=== PATIENT | female | born 1960 | race Caucasian/White ===

== ENCOUNTER 2020-12-13 05:44 | Day surgery (SDC) | payer MEDICARE, MEDICAID ==
[2020-12-04 15:11] LABS: LYMPHOCYTES % (AUTO) 34.7 % (21-51); MEAN CORPUSCULAR VOLUME 88.3 FL (78-98); MEAN PLATELET VOLUME 7.7 FL (7.4-10.4); MONOCYTES % (AUTO) 8.6 % (2-12); NEUTROPHILS % (AUTO) 55.3 % (42-75); PRE OP HEMATOCRIT 40.1 % (35.0-45.0); PRE OP HEMOGLOBIN 13.6 g/dL (12.0-16.0); PRE OP PLATELET COUNT 342 X10'3 (140-440); RED BLOOD COUNT 4.54 X10'6 (4.20-5.60); RED CELL DISTRIBUTION WIDTH 13.8 % (11.5-14.5)
[2020-12-04 15:12] LABS: BASOPHILS % (AUTO) 0.3 % (0-1); EOSINOPHILS # (AUTO) 0.1 X10'3 (0-0.9); EOSINOPHILS % (AUTO) 1.1 % (0-6); LYMPHOCYTES # (AUTO) 3.3 X10'3 (1.1-4.8); MONOCYTES # (AUTO) 0.8 X10'3 (0-0.9); NEUTROPHILS # (AUTO) 5.3 X10'3 (1.8-7.7)
[2020-12-04 15:24] LABS: ALBUMIN 3.5 G/DL (3.4-5.0); ALBUMIN/GLOBULIN RATIO 0.8 (1.1-1.5); ALKALINE PHOSPHATASE 206 IU/L (46-116); BLOOD UREA NITROGEN 18 MG/DL (7-18); BUN/CREATININE RATIO 19.6 (6.6-38.0); CALCIUM 8.7 MG/DL (8.5-10.1); CHLORIDE 109 MMOL/L (99-107); CREATININE 0.92 MG/DL (0.40-0.90); PRE OP ALT 32 U/L (30-65); PRE OP ANION GAP 9 (8-16); PRE OP AST 19 U/L (10-37); PRE OP BILIRUB, TOTAL 0.1 MG/DL (0.0-1.0); PRE OP GLUCOSE 131 MG/DL (70-104); PRE OP SODIUM 146 MMOL/L (135-145); TOTAL CARBON DIOXIDE 27.8 MMOL/L (24-32); TOTAL PROTEIN 8.1 G/DL (6.4-8.2); eGFR 62 ML/MIN
[~2020-12-13] VITALS: Ht 160 cm; Wt 108.0 kg
[~2020-12-13 05:44] MED LIST: ATOR10TA70 PO; CALC600T22 PO; CETI10TA14 PO; CHOL10006 PO; METF-1203 PO; PHEN32.46 PO; PHENOBARBITAL PO; SOY155CA PO; cefazolin/dext.iso 2gm/50ml 50 ML IV ONE; famotidine 20mg tablet PO ONE; fish oil; ringers solution, lacted 1,000 ML IV SCH
[2020-12-13 06:00] VITALS: BP 156/85
[2020-12-13] MEDS ORDERED: BUPIVAcaine/PF 2.5mg/ml (0.25%) 10ml vial ONE (06:44)
[2020-12-13] MEDS ORDERED: morphine 2 MG/ML inj. syringe IV PRN (07:20)
[2020-12-13] MEDS ORDERED: ondansetron/PF 4mg/2ml inj IV PRN (07:20)
[2020-12-13] MEDS ORDERED: labetalol 20mg/4ml (5mg/ml) syringe IV PRN (07:20)
[2020-12-13] MEDS ORDERED: fentaNYL/PF 50MCG/1 ML 2ML syringe IV PRN ×2 (07:20)
[2020-12-13] MEDS ORDERED: morphine 4 MG/ML inj SYRINge IV PRN (07:20)
[2020-12-13] MEDS ORDERED: ringers solution, lacted 1,000 ML IV SCH (07:20)
[2020-12-13] MEDS ORDERED: hydrALAZINE 20mg/ml inj. IV PRN (07:20)
[2020-12-13] MEDS ORDERED: desflurane 240ml liquid inh. IH ONE ×2 (07:27→09:06)
[2020-12-13 08:12] VITALS: BP 154/91
--- NOTE | 2020-12-13 08:12 | NUR ---
Received from OR via TOI IN STABLE CONDITION , accompanied by Anesthesiologist and SOCIAL STUDIES TEACHER report given by SOCIAL STUDIES TEACHER AND Anesthesiolgist. Addendum: 12/13/20 at 0825 by Nohemy Anguiano RN Amended: Links added.
[2020-12-13 08:20] VITALS: BP 140/82
[2020-12-13 08:30] VITALS: BP 150/84
--- NOTE | 2020-12-13 09:02 | NUR ---
PATIENT DISCHARGED FROM PACU IN STABLE CONDITION AFTER WRITTEN AND VERBAL DISCHARGE INSTRUCTIONS GIVEN. PATIENT GAVE VERBAL UNDERSTANDING OF INSTRUCTIONS GIVEN. PATIENT LEFT FACILITY VIA WHEELCHAIR WITH RN. Addendum: 12/13/20 at 0911 by Nohemy Anguiano RN Amended: Links added.
[2020-12-13] MEDS ORDERED: MIDAZolam 1mg/ml 10ml vial ONE (09:06)
[2020-12-13] MEDS ORDERED: fentaNYL/PF 50MCG/1 ML 2ML syringe ONE (09:06)
[2020-12-13] MEDS ORDERED: LIDOcaine 1%/PF 5ML 10 MG/ML VIAL ONE (09:06)
[2020-12-13] MEDS ORDERED: propofol 10mg/ml 20ml vial IV ONE (09:06)
== END 2020-12-13 09:02 | disposition home or self-care (01) ==
LOC: PAS 05:44
PROVIDERS: ATTEND Orthopaedic Surgery Hand Surgery
DX: M72.0 Palmar fascial fibromatosis [Dupuytren] (principal); G51.0 Bell's palsy; E11.9 Type 2 diabetes mellitus without complications; E66.9 Obesity, unspecified; Z68.41 Body mass index [BMI] 40.0-44.9, adult; M19.012 Primary osteoarthritis, left shoulder; Z20.822 Contact with and (suspected) exposure to COVID-19; Z90.49 Acquired absence of other specified parts of digestive tract; Z96.652 Presence of left artificial knee joint; Z98.890 Other specified postprocedural states; Z79.84 Long term (current) use of oral hypoglycemic drugs; Z79.899 Other long term (current) drug therapy; Z79.2 Long term (current) use of antibiotics
CPT/HCPCS: 26121; 36415; 80053; 82948; 85025; 93005; A6222; J2250; J2704; J3010; J3490; J7120; U0003; U0005; Z7506; Z7512; A4215; A4618; A6449; A7000

== ENCOUNTER 2024-05-31 14:39 | Inpatient (IN) | payer MEDICARE, MEDICAID ==
[~2024-05-31] VITALS: Ht 160 cm; Wt 103.1 kg
[~2024-05-31 14:39] MED LIST changes: -cefazolin/dext.iso 2gm/50ml 50 ML IV ONE; -famotidine 20mg tablet PO ONE; -ringers solution, lacted 1,000 ML IV SCH
[2024-05-31 15:00] LABS: BASOPHILS % (AUTO) 0.4 % (0-1); EOSINOPHILS # (AUTO) 0.2 X10'3 (0-0.9); HEMATOCRIT 43.5 % (35.0-45.0); HEMOGLOBIN 14.2 g/dl (12.0-16.0); LYMPHOCYTES % (AUTO) 21.6 % (21-51); MEAN CORPUSCULAR HEMOGLOBIN 29.7 PG (27.0-31.0); MEAN CORPUSCULAR HGB CONC 32.7 g/dL (33.0-36.5); MEAN CORPUSCULAR VOLUME 90.6 FL (78-98); MEAN PLATELET VOLUME 7.9 FL (7.4-10.4); MONOCYTES # (AUTO) 0.8 X10'3 (0-0.9); MONOCYTES % (AUTO) 8.2 % (2-12); NEUTROPHILS # (AUTO) 6.2 X10'3 (1.8-7.7); NEUTROPHILS % (AUTO) 67.8 % (42-75); PLATELET COUNT 317 X10'3 (140-440); RED BLOOD COUNT 4.81 X10'6 (4.20-5.60); RED CELL DISTRIBUTION WIDTH 14.8 % (11.5-14.5); WHITE BLOOD COUNT 9.2 X10'3 (4.5-11.0)
[2024-05-31 15:21] LABS: ALANINE AMINOTRANSFERASE 57 U/L (12-78); ALBUMIN 3.5 G/DL (3.4-5.0); ALBUMIN/GLOBULIN RATIO 0.8 (1.1-1.5); ALKALINE PHOSPHATASE 185 IU/L (46-116); BILIRUBIN,TOTAL 0.4 MG/DL (0.1-1.0); BLOOD UREA NITROGEN 22 MG/DL (7-18); CHLORIDE 103 MMOL/L (99-107); POTASSIUM 3.7 MMOL/L (3.5-5.1); eGFR 42 ML/MIN
[2024-05-31 15:50] LABS: ANION GAP 7 (8-16); ASPARTATE AMINO TRANSFERASE 30 U/L (10-37); BUN/CREATININE RATIO 17.3 (10.0-20.0); CALCIUM 9.2 MG/DL (8.5-10.1); CREATININE 1.27 MG/DL (0.40-0.90); GLUCOSE 116 MG/DL (70-104); SODIUM 143 MMOL/L (135-145); TOTAL CARBON DIOXIDE 33.5 MMOL/L (24-32); TOTAL PROTEIN 7.8 G/DL (6.4-8.2); eCRCL 37 ML/MIN
[2024-05-31 15:58] LABS: PRO BRAIN NATRIURETIC PEPTIDE 3602 PG/ML (0-125)
[2024-05-31] MEDS ORDERED: OMEP20CA16 PO (18:35)
[2024-05-31] MEDS ORDERED: SPIR25TA5 PO (18:35)
[2024-05-31] MEDS ORDERED: AMI200T PO (18:35)
[2024-05-31] MEDS ORDERED: FURO40TA4 PO (18:35)
[2024-05-31] MEDS ORDERED: APIX5TAB3 PO (18:35)
[2024-05-31] MEDS ORDERED: EMPA10TA PO (18:35)
[2024-05-31] MEDS ORDERED: LOSA25TA41 PO (18:35)
[2024-05-31] MEDS: diltiazem 5mg/ml 5ml inj. IV ONE (18:45)
[2024-05-31] MEDS: diltiazem-NS 100mg/100ml 100 ML IV SCH (19:04)
[2024-05-31] MEDS ORDERED: potassium Cl 40MEQ/1/2NS 520ml 520 ML IV PRN (19:30)
[2024-05-31] MEDS ORDERED: magnesium Cl slow-release 64mg tablet PO PRN (19:30)
[2024-05-31] MEDS ORDERED: mag hydrox/Alum hydrox/simeth 30ml oral suspension PO PRN (19:30)
[2024-05-31] MEDS ORDERED: potassium Cl 20 mEq SR tablet PO PRN ×2 (19:30)
[2024-05-31] MEDS ORDERED: magnesium sulf-water 2g/50mL 50 ML IV PRN (19:30)
[2024-05-31] MEDS ORDERED: morphine 2 MG/ML inj. syringe IV PRN ×2 (19:30)
[2024-05-31] MEDS ORDERED: magnesium hydroxide 30ml (MOM) UD suspension PO PRN (19:30)
[2024-05-31] MEDS ORDERED: magnesium sulf-water 4G/100mL 100 ML IV PRN (19:30)
[2024-05-31] MEDS ORDERED: ondansetron/PF 4mg/2ml inj IV PRN (19:30)
[2024-05-31] MEDS ORDERED: acetaminophen 325mg tablet PO PRN (19:30)
[2024-05-31] MEDS: K and/or MAG REPLACEMENT MC SCH (20:00)
[2024-05-31] MEDS: docusate sod 100mg capsule PO SCH (20:00)
[2024-05-31] MEDS: metoprolol tartrate 1mg/ml inj IV SCH (20:31)
[2024-05-31] MEDS: furosemide 40mg/4ml inj IV SCH (20:32)
[2024-05-31] MEDS ORDERED: glucagon, human recombinant 1mg kit SUBCUT PRN (21:50)
[2024-05-31] MEDS ORDERED: dextrose 50%-water 50ml dispensing syringe IV PRN ×2 (21:50)
[2024-05-31] MEDS ORDERED: DEXTROSE 15 GM of carb/4 tabs (each vial/BOTTLE has 4 tablets) PO PRN ×2 (21:50)
[2024-05-31] MEDS: atorvastatin 10mg tablet PO SCH (22:02)
[2024-05-31 22:12] LABS: HEMOGLOBIN A1C 6.5 % (4.5-6.2)
[2024-05-31 23:15] VITALS: RESP 13; O2SAT 94
[2024-05-31 23:30] VITALS: BP 128/84; PULSE 100; RESP 13; TEMP 97.5; O2SAT 94
[2024-06-01] VITALS (19 sets, daily range): BP systolic 87–126; BP diastolic 51–93; PULSE 83–131; RESP 11–25; TEMP 97.5–98.4; O2SAT 92–98
[2024-06-01] MEDS: diltiazem-NS 100mg/100ml 100 ML IV SCH ×2 (03:44→11:09)
[2024-06-01] MEDS: INSULIN LISPRO 100 UNIT/ML INSULN.PEN MULTI-DOSE SQ SCH ×2 (07:00→09:00)
[2024-06-01 07:29] LABS: BASOPHILS % (AUTO) 0.3 % (0-1); EOSINOPHILS # (AUTO) 0.2 X10'3 (0-0.9); EOSINOPHILS % (AUTO) 1.8 % (0-6); HEMATOCRIT 40.4 % (35.0-45.0); HEMOGLOBIN 13.4 g/dl (12.0-16.0); LYMPHOCYTES # (AUTO) 2.2 X10'3 (1.1-4.8); LYMPHOCYTES % (AUTO) 23.8 % (21-51); MEAN CORPUSCULAR HEMOGLOBIN 29.7 PG (27.0-31.0); MEAN CORPUSCULAR HGB CONC 33.3 g/dL (33.0-36.5); MEAN CORPUSCULAR VOLUME 89.2 FL (78-98); MEAN PLATELET VOLUME 8.1 FL (7.4-10.4); MONOCYTES % (AUTO) 10.6 % (2-12); NEUTROPHILS # (AUTO) 5.8 X10'3 (1.8-7.7); NEUTROPHILS % (AUTO) 63.5 % (42-75); PLATELET COUNT 306 X10'3 (140-440); RED BLOOD COUNT 4.53 X10'6 (4.20-5.60); RED CELL DISTRIBUTION WIDTH 14.2 % (11.5-14.5); WHITE BLOOD COUNT 9.2 X10'3 (4.5-11.0)
[2024-06-01 07:53] LABS: ALANINE AMINOTRANSFERASE 46 U/L (12-78); ALBUMIN/GLOBULIN RATIO 0.8 (1.1-1.5); ALKALINE PHOSPHATASE 162 IU/L (46-116); ANION GAP 8 (8-16); ASPARTATE AMINO TRANSFERASE 24 U/L (10-37); BILIRUBIN,TOTAL 0.4 MG/DL (0.1-1.0); BLOOD UREA NITROGEN 15 MG/DL (7-18); CALCIUM 8.7 MG/DL (8.5-10.1); CHLORIDE 103 MMOL/L (99-107); GLUCOSE 102 MG/DL (70-104); MAGNESIUM 1.9 MG/DL (1.5-2.4); POTASSIUM 3.6 MMOL/L (3.5-5.1); SODIUM 142 MMOL/L (135-145); TOTAL PROTEIN 6.8 G/DL (6.4-8.2); eCRCL 47 ML/MIN; eGFR 56 ML/MIN
[2024-06-01] MEDS: losartan 25mg tablet PO SCH (07:57)
[2024-06-01] MEDS: EMPAGLIFLOZIN 10 MG TABLET PO SCH (07:57)
[2024-06-01] MEDS: apixaban 5mg tablet PO SCH (07:57)
[2024-06-01] MEDS: pantoprazole 40mg Tablet.DR PO SCH (07:58)
[2024-06-01] MEDS: spironolactone 25 MG tablet PO SCH (07:58)
[2024-06-01] MEDS: amiodarone 200mg tablet PO SCH (07:58)
[2024-06-01] MEDS: phenoBARBITAL 30mg tablet PO SCH (09:29)
[2024-06-01] MEDS: amiodarone 150mg/dext, iso-os 100 ML IV ONE (14:53)
[2024-06-01] MEDS: metoprolol tartrate 50mg tablet PO SCH (14:53)
[2024-06-01] MEDS: amiodarone/D5 360MG/200ML BAG 200 ML IV SCH (15:11)
[2024-06-01] MEDS: insulin glargine (Lantus) pen - multi-dose SQ SCH (20:59)
[2024-06-02] VITALS (8 sets, daily range): BP systolic 92–123; BP diastolic 50–83; PULSE 81–122; RESP 14–24; TEMP 97–98.1; O2SAT 91–96
[2024-06-02 07:16] LABS: BASOPHILS # (AUTO) 0.1 X10'3 (0-0.2); BASOPHILS % (AUTO) 0.8 % (0-1); EOSINOPHILS # (AUTO) 0.2 X10'3 (0-0.9); EOSINOPHILS % (AUTO) 1.9 % (0-6); HEMOGLOBIN 14.8 g/dl (12.0-16.0); LYMPHOCYTES # (AUTO) 2.3 X10'3 (1.1-4.8); LYMPHOCYTES % (AUTO) 26.1 % (21-51); MEAN CORPUSCULAR HEMOGLOBIN 29.6 PG (27.0-31.0); MEAN CORPUSCULAR HGB CONC 32.9 g/dL (33.0-36.5); MEAN CORPUSCULAR VOLUME 90.1 FL (78-98); MEAN PLATELET VOLUME 8.1 FL (7.4-10.4); MONOCYTES # (AUTO) 0.8 X10'3 (0-0.9); NEUTROPHILS # (AUTO) 5.4 X10'3 (1.8-7.7); NEUTROPHILS % (AUTO) 62.2 % (42-75); PLATELET COUNT 204 X10'3 (140-440); RED BLOOD COUNT 4.99 X10'6 (4.20-5.60); WHITE BLOOD COUNT 8.7 X10'3 (4.5-11.0)
[2024-06-02 07:44] LABS: ALANINE AMINOTRANSFERASE 40 U/L (12-78); ALBUMIN/GLOBULIN RATIO 0.8 (1.1-1.5); ALKALINE PHOSPHATASE 159 IU/L (46-116); ANION GAP 9 (8-16); ASPARTATE AMINO TRANSFERASE 28 U/L (10-37); BILIRUBIN,TOTAL 0.4 MG/DL (0.1-1.0); BLOOD UREA NITROGEN 21 MG/DL (7-18); CALCIUM 8.7 MG/DL (8.5-10.1); CHLORIDE 101 MMOL/L (99-107); GLUCOSE 122 MG/DL (70-104); MAGNESIUM 2.1 MG/DL (1.5-2.4); SODIUM 138 MMOL/L (135-145); eCRCL 47 ML/MIN; eGFR 56 ML/MIN
[2024-06-02 07:46] LABS: POTASSIUM 4.1 MMOL/L (3.5-5.1)
[2024-06-02] MEDS ORDERED: METO-395 PO (11:59)
[2024-06-02] MEDS ORDERED: AMI200T PO (11:59)
[2024-06-02] MEDS ORDERED: amiodarone 200mg tablet PO SCH (20:00)
[2024-06-03] MEDS ORDERED: spironolactone 25 MG tablet PO SCH (08:00)
== END 2024-06-02 14:15 | disposition home or self-care (01) | DRG 308 ==
LOC: ER 14:39 → ED HOLD 19:32 → PCU 3S 22:27
PROVIDERS: ADMIT Internal Medicine; ATTEND Internal Medicine
DX: I48.91 Unspecified atrial fibrillation (principal); N17.0 Acute kidney failure with tubular necrosis; I50.22 Chronic systolic (congestive) heart failure; Z68.41 Body mass index [BMI] 40.0-44.9, adult; I82.511 Chronic embolism and thrombosis of right femoral vein; G40.909 Epilepsy, unspecified, not intractable, without status epilepticus; I08.1 Rheumatic disorders of both mitral and tricuspid valves; E66.9 Obesity, unspecified; Z96.652 Presence of left artificial knee joint; E78.5 Hyperlipidemia, unspecified; E11.9 Type 2 diabetes mellitus without complications; Z90.49 Acquired absence of other specified parts of digestive tract; Z79.899 Other long term (current) drug therapy; Z79.01 Long term (current) use of anticoagulants; Z79.84 Long term (current) use of oral hypoglycemic drugs
CPT/HCPCS: 36415; 71045; 80053; 82948; 83036; 83735; 83880; 84484; 85025; 87081; 93005; 96365; 96375; 99285; G0378; J0282; J1815; J1940; J3490; J7030

== ENCOUNTER 2024-07-18 09:02 | Day surgery (SDC) | payer MEDICARE, MEDICAID ==
[2024-07-14 09:32] LABS: BASOPHILS % (AUTO) 0.3 % (0-1); EOSINOPHILS # (AUTO) 0.1 X10'3 (0-0.9); EOSINOPHILS % (AUTO) 1.3 % (0-6); HEMATOCRIT 43.8 % (35.0-45.0); HEMOGLOBIN 14.9 g/dl (12.0-16.0); LYMPHOCYTES # (AUTO) 3.5 X10'3 (1.1-4.8); LYMPHOCYTES % (AUTO) 38.2 % (21-51); MEAN CORPUSCULAR HEMOGLOBIN 29.7 PG (27.0-31.0); MEAN CORPUSCULAR HGB CONC 34.1 g/dL (33.0-36.5); MEAN CORPUSCULAR VOLUME 87.3 FL (78-98); MEAN PLATELET VOLUME 7.8 FL (7.4-10.4); MONOCYTES # (AUTO) 0.8 X10'3 (0-0.9); MONOCYTES % (AUTO) 8.6 % (2-12); NEUTROPHILS # (AUTO) 4.7 X10'3 (1.8-7.7); NEUTROPHILS % (AUTO) 51.6 % (42-75); PLATELET COUNT 306 X10'3 (140-440); RED BLOOD COUNT 5.02 X10'6 (4.20-5.60); RED CELL DISTRIBUTION WIDTH 15.1 % (11.5-14.5); WHITE BLOOD COUNT 9.1 X10'3 (4.5-11.0)
[2024-07-14 09:45] LABS: APTT 30 SECONDS (22-32); PROTHROMBIN TIME 10.3 SECONDS (9.0-12.0)
[2024-07-14 09:47] LABS: ALBUMIN 3.8 G/DL (3.4-5.0); ANION GAP 9 (8-16); BLOOD UREA NITROGEN 25 MG/DL (7-18); BUN/CREATININE RATIO 21.9 (10.0-20.0); CALCIUM 9.2 MG/DL (8.5-10.1); CHLORIDE 103 MMOL/L (99-107); CHOL/HDL RATIO 2.2 (0.00-4.99); CHOLESTEROL 163 MG/DL (0-200); CREATININE 1.14 MG/DL (0.40-0.90); GLUCOSE 119 MG/DL (70-104); HDL CHOLESTEROL 73 MG/DL (35-60); LDL CHOLESTEROL 75 MG/DL (50-100); POTASSIUM 3.6 MMOL/L (3.5-5.1); SODIUM 140 MMOL/L (135-145); TOTAL CARBON DIOXIDE 28.3 MMOL/L (24-32); TRIGLYCERIDES 117 MG/DL (20-135); eGFR 48 ML/MIN
[~2024-07-18] VITALS: Ht 160 cm; Wt 98.6 kg
[~2024-07-18 09:02] MED LIST changes: +AMI200T PO; +APIX5TAB3 PO; -CALC600T22 PO; -CETI10TA14 PO; -CHOL10006 PO; +EMPA10TA PO; +FURO40TA4 PO; +LOSA25TA41 PO; -METF-1203 PO; +METO-395 PO; +OMEP20CA16 PO; -SOY155CA PO; +SPIR25TA5 PO; -fish oil
[2024-07-18] MEDS ORDERED: METO-411 PO (09:35)
[2024-07-18] MEDS ORDERED: FURO-150 PO (09:35)
[2024-07-18] MEDS ORDERED: SPIR25TA5 PO (09:35)
[2024-07-18] MEDS ORDERED: AMI200T PO (09:35)
[2024-07-18] MEDS ORDERED: MIDAZolam 1mg/ml 10ml vial IV ONE (09:40)
[2024-07-18] MEDS ORDERED: normal saline 1000ml 1,000 ML IV SCH (09:40)
[2024-07-18] MEDS ORDERED: fentaNYL/PF 50MCG/1 ML 2ML syringe IV ONE (09:40)
[2024-07-18 09:42] VITALS: BP 159/90; PULSE 117; RESP 15; TEMP 97.9; O2SAT 96
[2024-07-18 10:30] VITALS: RESP 15; O2SAT 96
[2024-07-18] MEDS ORDERED: fentaNYL/PF 50MCG/1 ML 2ML syringe ONE (12:00)
[2024-07-18] MEDS ORDERED: midazolam 1 mg/ML 2ml injection ONE ×3 (12:00→12:24)
[2024-07-18 13:33] VITALS: BP 126/80; PULSE 75; RESP 16; O2SAT 92
--- NOTE | 2024-07-18 13:41 | ELECTROCARDIOGRAPH REPORT ---
[facility] Test Date: 2024-07-18 Test Time: 13:37:36 Pat Name: DELVIN ODOM Department: [facility] Patient ID: [facility]-[id number] Room: Gender: F Checker Cashier: KADEN : 1960 Requested By: MAJOR LEE Order Number: [id number] Reading MD: Dr. Jeannie Lee Measurements Intervals [place] Rate: 73 P: 65 MO: 164 QRS: 14 QRSD: 86 T: 30 QT: 451 QTc: 497 Interpretive Statements Sinus rhythm Low voltage, precordial leads Electronically Signed On 07-19-2024 7:00:[address] Jeannie Lee Please click the below link to view image of tracing.
[2024-07-18 13:45] VITALS: BP 132/78; PULSE 73; RESP 16; O2SAT 92
[2024-07-18 14:00] VITALS: BP 119/73; PULSE 73; RESP 16; O2SAT 92
[2024-07-18 14:15] VITALS: BP 117/74; PULSE 75; RESP 16; O2SAT 93
--- NOTE | 2024-07-29 19:26 | CARDIOLOGY REPORT ---
DATE OF SERVICE: 07/18/2024 DICTATING PHYSICIAN: Jeannie Lee MD DATE OF STUDY: 07/18/2024. NAME OF STUDY: Electrical cardioversion. PROCEDURE: The patient was brought to cardiac short stay where she was prepped in the usual manner. After gradual increments of Versed and fentanyl, and conscious sedation was obtained, the patient was cardioverted. The patient remained clinically and hemodynamically stable throughout the procedure. IMPRESSION: Successful electrical cardioversion to normal sinus rhythm without complication. Jeannie Lee MD TID: [id number] RECEIPT: [id number] LORE/SEBAS
== END 2024-07-18 14:17 | disposition home or self-care (01) ==
LOC: SSTAY O 09:02
PROVIDERS: ATTEND Student in an Organized Health Care Education/Training Program
DX: I48.91 Unspecified atrial fibrillation (principal); E78.00 Pure hypercholesterolemia, unspecified; I11.0 Hypertensive heart disease with heart failure; I50.9 Heart failure, unspecified; E11.9 Type 2 diabetes mellitus without complications; Z79.899 Other long term (current) drug therapy; Z82.49 Family history of ischemic heart disease and other diseases of the circulatory system
CPT/HCPCS: 36415; 80048; 80061; 82948; 83695; 85025; 85610; 85730; 92960; 93005; J2250; J3010; J7030; Z7610